=== PATIENT | female | born 1935 | race Caucasian/White ===

== ENCOUNTER 2016-05-15 23:02 | Emergency (ER) | payer OTHER, MEDICARE ==
[~2016-05-15] VITALS: Ht 165.1 cm; Wt 78.0 kg
[2016-05-15 23:13] VITALS: BP 152/58; PULSE 80; RESP 18; TEMP 97.3; O2SAT 92
--- NOTE | 2016-05-15 23:13 | NUR ---
Pt placed in bed 8 and gowned up for evaluation
--- NOTE | 2016-05-15 23:25 | NUR ---
Pt brought to ED by family members with c/o active bleeding of bilateral nares. Pt stated that she took warfarin 0.5 mg PO today before finding out that INR result is 3.2 per PCP. Active bleeding of both nares noted. A&Ox4, denies SOB or chestpain, denies N/V/D. Skin intact. Will continue to monitor
--- NOTE | 2016-05-15 23:42 | NUR ---
at bedside examining pt
[2016-05-15] MEDS ORDERED: COCAINE 4% SOLUTION TP ONE (23:45)
[2016-05-16 00:26] LABS: BASOPHILS % (AUTO) 0.5 % (0.0-2.0); EOSINOPHILS # (AUTO) 0.1 K/uL (0.0-0.4); EOSINOPHILS % (AUTO) 1.3 % (0.0-4.0); HEMATOCRIT 29.1 % (36-48); HEMOGLOBIN 9.7 g/dL (12.0-16.0); LYMPHOCYTES # (AUTO) 1.5 K/uL (1.0-5.5); MEAN CORPUSCULAR HEMOGLOBIN 28 pg (27-31); MEAN CORPUSCULAR HGB CONC 33 % (32-36); MEAN CORPUSCULAR VOLUME 84 fL (79.0-98.0); MONOCYTES # (AUTO) 0.8 K/uL (0.0-1.0); MONOCYTES % (AUTO) 9.5 % (1.7-9.3); NEUTROPHILS # (AUTO) 5.7 K/uL (1.8-7.7); NEUTROPHILS % (AUTO) 70.7 % (40.0-70.0); PLATELET COUNT (AUTO) 245 K/uL (130-430); RED BLOOD CELL COUNT(AUTO) 3.48 MIL/uL (4.2-6.2); RED CELL DISTRIBUTION WIDTH 13.4 % (9.0-15.0); WHITE BLOOD COUNT (AUTO) 8.1 K/uL (4.8-10.8)
[2016-05-16 00:29] LABS: ANION GAP 6 (5-15); CALCIUM 8.9 mg/dL (8.4-11.0); CHLORIDE 106 mmol/L (98-107); CREATININE 0.63 mg/dL (0.55-1.30); GLUCOSE 111 mg/dL (70-99); POTASSIUM 3.4 mmol/L (3.5-5.1); SODIUM SERUM 141 mmol/L (136-145); UREA NITROGEN, BLOOD 23 mg/dL (8-21)
[2016-05-16 00:33] LABS: INR 2.6 (0.8-1.2); PROTHROMBIN TIME 28.6 SECS (9.5-12.5)
[2016-05-16] MEDS ORDERED: NACL 0.9% 1,000 ML IV ONE (00:43)
[2016-05-16] MEDS ORDERED: ONDANSETRON HCL 4 MG/2 ML VIAL IVP ONE (00:45)
[2016-05-16] MEDS ORDERED: KETOROLAC TROMETHAMINE 30 MG VIAL IVP ONE (00:45)
--- NOTE | 2016-05-16 00:45 | NUR ---
# 22 gauge angiocath placed to right hand. Use of asceptic technique. Opsite placed over site. Blood return noted. Flushed with 10 cc of normal saline. No evidence of infiltration noted. Patient tolerated well.
--- NOTE | 2016-05-16 01:45 | NUR ---
Pt in bed , family at bedside, denies distress
[2016-05-16] MEDS ORDERED: LORazepam 2 MG/ML VIAL (FOR ER USE) IVP ONE (02:00)
--- NOTE | 2016-05-16 02:30 | NUR ---
Pt stated she is able to ambulate with walker.
[2016-05-16] MEDS ORDERED: IPRATROPIUM/ALBUTEROL SULFATE 3 ML AMPUL.NEB INH ONE (03:00)
[2016-05-16] MEDS ORDERED: SODIUM BICARBONATE 8.4% JECT 50 MEQ/50 ML SYRINGE IVP ONE (03:00)
[2016-05-16 03:03] VITALS: BP 142/63; PULSE 78; RESP 18; TEMP 97.3; O2SAT 96
--- NOTE | 2016-05-16 03:03 | NUR ---
Pt refused medications and wanted to be discharged, MD Foster aware
--- NOTE | 2016-05-16 03:05 | NUR ---
Patient given written and verbal discharge instructions and verbalizes understanding. ER MD Foster discussed with patient the results and treatment provided. Patient in stable condition. ID arm band removed. IV catheter removed intact and dressing applied, no active bleeding. Rx of zofran given. Patient educated on pain management and to follow up with PMD. Pain Scale 0/10 Opportunity for questions provided and answered.
== END 2016-05-16 03:03 | disposition home or self-care (01) ==
LOC: SED 23:02
DX: R04.0 Epistaxis (principal); I10 Essential (primary) hypertension; E78.00 Pure hypercholesterolemia, unspecified; Z88.8 Allergy status to other drugs, medicaments and biological substances
CPT/HCPCS: 30901; 36415; 80048; 85025; 85610; 96361; 96374; 99284; J2405; J7030; J1885